=== PATIENT | male | born 1960 | race Caucasian/White ===

== ENCOUNTER 2019-04-06 16:45 | Emergency (ER) | payer OTHER | END 2019-04-06 17:15 | disposition home or self-care (01) | LOC: SCSER 16:45 | DX: K64.9 Unspecified hemorrhoids (principal); E78.5 Hyperlipidemia, unspecified; I10 Essential (primary) hypertension; E66.9 Obesity, unspecified; F17.210 Nicotine dependence, cigarettes, uncomplicated; Z86.711 Personal history of pulmonary embolism; Z79.899 Other long term (current) drug therapy | CPT/HCPCS: 99282 ==

== ENCOUNTER 2019-07-02 14:17 | Outpatient (CLI) | payer OTHER ==
--- NOTE | 2019-07-02 15:06 | ULT ---
Left lower extremity venous Doppler ultrasound: 07/02/2019 COMPARISON: 09/01/2014 HISTORY: Edema, swelling, assess for DVT TECHNIQUE: Multiplanar grayscale sonographic imaging of the venous structures of the left lower extre mity obtained with color flow and spectral analysis FINDINGS: The left common femoral vein, greater saphenous vein, profunda femoral vein, femoral vein, and posterior tibial vein appear patent. Popliteal vein is only partially compressible on the left, evidence of DVT. Incidental note is made of thrombosis of the left lesser saphenous vein as well. IMPRESSION: Deep venous thrombosis of the left popliteal vein. There is also noncompressible thrombos is involving the lesser saphenous vein. The performing railway signalling engineer Rosa Elena made the ordering nurse practitioner, Luanne Purcell, aware of these findings at 3:00 PM 07/02/2019.
== END 2019-07-02 14:18 | disposition home or self-care (01) ==
LOC: ULT 14:17
PROVIDERS: ATTEND Nurse Practitioner Adult Health
DX: M79.89 Other specified soft tissue disorders (principal); I82.432 Acute embolism and thrombosis of left popliteal vein; I82.412 Acute embolism and thrombosis of left femoral vein

== ENCOUNTER 2022-06-23 11:51 | Inpatient (IN) | payer OTHER ==
[2022-06-23 18:49] VITALS: BMI 41.6
[2022-06-23 20:24] LABS: Anion Gap 16 mmol/L (10-20); BUN (Urea Nitrogen) 12 mg/dL (8.4-25.7); Calc. Creatinine Clearance 135 mL/min (70-130); Calcium 7.5 mg/dL (7.8-10.44); Carbon Dioxide 22 mmol/L (23-31); Chloride 100 mmol/L (98-107); Estimated GFR 85; Glucose 147 mg/dL (80-115); Magnesium 1.5 mg/dL (1.6-2.6); Potassium 3.2 mmol/L (3.5-5.1); Sodium 135 mmol/L (136-145)
[2022-06-23] MEDS ORDERED: Ondansetron ODT 4 MG TAB PO PRN (20:37)
[2022-06-23] MEDS ORDERED: Lorazepam 2 MG/ML VIAL IM PRN (20:48)
[2022-06-23] MEDS ORDERED: HumaLOG 300 UNITS/3 ML VIAL SC PRN (20:58)
[2022-06-23] MEDS ORDERED: Dextrose 5% in Water 1,000 ML IV PRN (20:58)
[2022-06-23] MEDS ORDERED: Dextrose 50% Abboject 50 ML SYRINGE SLOW IVP PRN (20:58)
[2022-06-23] MEDS ORDERED: Electrolyte Replacement Protocol 1 EACH FS SCH (21:00)
[2022-06-23] MEDS: Acetaminophen 325 MG TAB PO PRN (21:42)
[2022-06-23] MEDS: chlordiazePOXIDE HCl 25 MG CAP PO SCH (21:50)
[2022-06-23] MEDS ORDERED: Magnesium 2 GM/50 ML(in water) 2 GM in Premix Bag 1 BAG IVPB SCH (22:15)
[2022-06-23] MEDS ORDERED: Potassium Chloride 20 MEQ TAB PO SCH (22:15)
[2022-06-23] MEDS: Lorazepam 1 MG TAB PO PRN (23:22)
[2022-06-24 04:50] LABS: #Eosinphils 0.2 thou/uL (0.0-0.7); #Lymphocytes 1.7 thou/uL (1.20-3.40); #Monocytes 0.9 thou/uL (0.11-0.59); #Neutrophils 5.1 thou/uL (1.40-6.50); %Basophils 0.2 % (0.0-1.0); %Eosinophils 2.7 % (0.0-10.0); %Lymphocytes 21.4 % (21.0-51.0); %Monocytes 11.2 % (0.0-10.0); %Neutrophils 64.5 % (42.0-75.0); Hemoglobin 13.2 g/dL (14.0-18.0); Mean Corpuscular HGB CONC 34.3 g/dL (32.0-36.0); Mean Corpuscular Hemoglobin 32.5 pg (27.0-31.0); Mean Corpuscular Volume 94.8 fL (78.0-98.0); Mean Platelet Volume 6.9 fL (7.4-10.4); Platelet Count 199 thou/uL (130-400); RBC Distribution Width 11.2 % (11.5-14.5); Red Blood Cell (RBC) Count 4.05 mill/uL (4.70-6.10); White Blood Cell (WBC) Count 7.8 thou/uL (4.8-10.8)
[2022-06-24 05:05] LABS: ALT (SGPT) 29 U/L (8-55); AST (SGOT) 39 U/L (5-34); Albumin 3.5 g/dL (3.4-4.8); Alkaline Phosphatase 60 U/L (40-110); Anion Gap 14 mmol/L (10-20); BUN (Urea Nitrogen) 8 mg/dL (8.4-25.7); Bilirubin, Total 0.9 mg/dL (0.2-1.2); Calc. Creatinine Clearance 135 mL/min (70-130); Calcium 7.6 mg/dL (7.8-10.44); Carbon Dioxide 25 mmol/L (23-31); Chloride 100 mmol/L (98-107); Estimated GFR 85; Globulin 2.8 g/dL (2.4-3.5); Glucose 183 mg/dL (80-115); Magnesium 2.2 mg/dL (1.6-2.6); Potassium 3.5 mmol/L (3.5-5.1); Protein, Total 6.3 g/dL (5.8-8.1); Sodium 135 mmol/L (136-145)
[2022-06-24 05:06] LABS: Phosphorus 1.6 mg/dL (2.3-4.7)
[2022-06-24] MEDS ORDERED: Magnesium 2 GM/50 ML(in water) 2 GM in Premix Bag 1 BAG IVPB SCH (05:45)
[2022-06-24] MEDS: PHOS-NAK 1 PKT PACK PO SCH ×2 (08:41→15:12)
[2022-06-24] MEDS: chlordiazePOXIDE HCl 25 MG CAP PO SCH ×3 (08:42→20:48)
[2022-06-24] MEDS: Folic Acid 1 MG TAB PO SCH (08:42)
[2022-06-24] MEDS: Multivit, Therapeutic 1 TAB PO SCH (08:42)
[2022-06-24] MEDS: Enoxaparin Sodium 40 MG/0.4 ML SYRINGE SC SCH (08:43)
[2022-06-24] MEDS ORDERED: cloNIDine 0.1 MG TAB PO PRN (08:48)
[2022-06-24] MEDS ORDERED: Non-Formulary Item 1 EACH (Omeprazole [Omeprazole] 20 MG Tablet.Dr) PO SCH (09:00)
[2022-06-24] MEDS ORDERED: Non-Formulary Item 1 EACH (Buspirone Hcl [Buspirone Hcl] 15 MG Tablet) PO SCH (09:00)
[2022-06-24] MEDS: busPIRone HCl 5 MG TAB PO SCH ×2 (10:01→20:48)
[2022-06-24] MEDS: Bupropion 150 MG XL TAB PO SCH (10:03)
[2022-06-24] MEDS: Propranolol 40 MG TAB PO SCH ×2 (10:03→20:49)
[2022-06-24] MEDS: Lorazepam 1 MG TAB PO PRN (14:14)
[2022-06-24] MEDS ORDERED: Lorazepam 1 MG TAB PO PRN (20:48)
[2022-06-24] MEDS: Rosuvastatin 5 MG TAB PO SCH (20:49)
[2022-06-24] MEDS: Acetaminophen 325 MG TAB PO PRN (20:49)
[2022-06-24] MEDS: Thiamine HCl 200 MG/2 ML VIAL SLOW IVP SCH (20:53)
[2022-06-24] MEDS ORDERED: Ondansetron PF 4 MG/2 ML Vial IVP PRN (21:21)
[2022-06-25 04:50] LABS: #Eosinphils 0.3 thou/uL (0.0-0.7); #Lymphocytes 2.4 thou/uL (1.20-3.40); #Monocytes 0.6 thou/uL (0.11-0.59); %Basophils 0.8 % (0.0-1.0); %Lymphocytes 37.8 % (21.0-51.0); %Neutrophils 47.5 % (42.0-75.0); Hemoglobin 12.7 g/dL (14.0-18.0); Mean Corpuscular HGB CONC 34.7 g/dL (32.0-36.0); Mean Corpuscular Hemoglobin 32.9 pg (27.0-31.0); Mean Corpuscular Volume 94.7 fL (78.0-98.0); Mean Platelet Volume 6.8 fL (7.4-10.4); Platelet Count 172 thou/uL (130-400); RBC Distribution Width 11.2 % (11.5-14.5); Red Blood Cell (RBC) Count 3.86 mill/uL (4.70-6.10); White Blood Cell (WBC) Count 6.2 thou/uL (4.8-10.8)
[2022-06-25 05:10] LABS: ALT (SGPT) 28 U/L (8-55); AST (SGOT) 33 U/L (5-34); Albumin 3.5 g/dL (3.4-4.8); Alkaline Phosphatase 56 U/L (40-110); Anion Gap 13 mmol/L (10-20); BUN (Urea Nitrogen) 12 mg/dL (8.4-25.7); Bilirubin, Total 0.5 mg/dL (0.2-1.2); Calc. Creatinine Clearance 127 mL/min (70-130); Carbon Dioxide 27 mmol/L (23-31); Chloride 101 mmol/L (98-107); Estimated GFR 79; Globulin 2.4 g/dL (2.4-3.5); Glucose 148 mg/dL (80-115); Magnesium 1.7 mg/dL (1.6-2.6); Potassium 3.7 mmol/L (3.5-5.1); Protein, Total 5.9 g/dL (5.8-8.1); Sodium 137 mmol/L (136-145)
[2022-06-25 05:19] LABS: Phosphorus 2.4 mg/dL (2.3-4.7)
[2022-06-25] MEDS ORDERED: Magnesium 2 GM/50 ML(in water) 2 GM in Premix Bag 1 BAG IVPB SCH ×2 (05:30→08:00)
[2022-06-25] MEDS: Enoxaparin Sodium 40 MG/0.4 ML SYRINGE SC SCH (08:18)
[2022-06-25] MEDS: chlordiazePOXIDE HCl 25 MG CAP PO SCH ×3 (08:18→20:07)
[2022-06-25] MEDS: busPIRone HCl 5 MG TAB PO SCH ×2 (08:18→20:07)
[2022-06-25] MEDS: Propranolol 40 MG TAB PO SCH ×2 (08:18→20:08)
[2022-06-25] MEDS: Multivit, Therapeutic 1 TAB PO SCH (08:18)
[2022-06-25] MEDS: Bupropion 150 MG XL TAB PO SCH (08:18)
[2022-06-25] MEDS: Folic Acid 1 MG TAB PO SCH (08:18)
[2022-06-25] MEDS: Acetaminophen 325 MG TAB PO PRN (15:34)
[2022-06-25] MEDS: HumaLOG 300 UNITS/3 ML VIAL SC PRN (17:14)
[2022-06-25] MEDS: Rosuvastatin 5 MG TAB PO SCH (20:08)
[2022-06-25] MEDS: Thiamine HCl 200 MG/2 ML VIAL SLOW IVP SCH (20:09)
[2022-06-25] MEDS ORDERED: Lorazepam 1 MG TAB PO PRN (20:48)
[2022-06-26 04:55] LABS: #Basophils 0.1 thou/uL (0.0-0.2); #Eosinphils 0.3 thou/uL (0.0-0.7); #Lymphocytes 2.3 thou/uL (1.20-3.40); #Monocytes 0.4 thou/uL (0.11-0.59); #Neutrophils 2.8 thou/uL (1.40-6.50); %Eosinophils 5.3 % (0.0-10.0); %Lymphocytes 39.2 % (21.0-51.0); %Neutrophils 47.5 % (42.0-75.0); Hemoglobin 12.5 g/dL (14.0-18.0); Mean Corpuscular HGB CONC 34.5 g/dL (32.0-36.0); Mean Corpuscular Hemoglobin 32.8 pg (27.0-31.0); Mean Corpuscular Volume 94.9 fL (78.0-98.0); Mean Platelet Volume 6.9 fL (7.4-10.4); Platelet Count 180 thou/uL (130-400); RBC Distribution Width 11.2 % (11.5-14.5); Red Blood Cell (RBC) Count 3.82 mill/uL (4.70-6.10)
[2022-06-26 05:20] LABS: ALT (SGPT) 40 U/L (8-55); AST (SGOT) 54 U/L (5-34); Albumin 3.4 g/dL (3.4-4.8); Alkaline Phosphatase 53 U/L (40-110); Anion Gap 12 mmol/L (10-20); BUN (Urea Nitrogen) 14 mg/dL (8.4-25.7); Bilirubin, Total 0.3 mg/dL (0.2-1.2); Calc. Creatinine Clearance 129 mL/min (70-130); Calcium 8.6 mg/dL (7.8-10.44); Carbon Dioxide 23 mmol/L (23-31); Chloride 103 mmol/L (98-107); Estimated GFR 80; Globulin 2.7 g/dL (2.4-3.5); Glucose 181 mg/dL (80-115); Magnesium 1.7 mg/dL (1.6-2.6); Potassium 4.2 mmol/L (3.5-5.1); Protein, Total 6.1 g/dL (5.8-8.1); Sodium 134 mmol/L (136-145)
[2022-06-26] MEDS: HumaLOG 300 UNITS/3 ML VIAL SC PRN (06:32)
[2022-06-26] MEDS ORDERED: Magnesium 2 GM/50 ML(in water) 2 GM in Premix Bag 1 BAG IVPB SCH (08:00)
[2022-06-26 08:10] VITALS: BP 156/99; TEMP 97.6
[2022-06-26] MEDS: Bupropion 150 MG XL TAB PO SCH (08:12)
[2022-06-26] MEDS: Multivit, Therapeutic 1 TAB PO SCH (08:12)
[2022-06-26] MEDS: chlordiazePOXIDE HCl 25 MG CAP PO SCH (08:12)
[2022-06-26] MEDS: busPIRone HCl 5 MG TAB PO SCH (08:12)
[2022-06-26] MEDS: Folic Acid 1 MG TAB PO SCH (08:12)
[2022-06-26] MEDS: Propranolol 40 MG TAB PO SCH (08:12)
[2022-06-26] MEDS: Enoxaparin Sodium 40 MG/0.4 ML SYRINGE SC SCH (08:13)
[2022-06-26] MEDS ORDERED: Lorazepam 0.5 MG TAB PO PRN (20:48)
[2022-06-26] MEDS ORDERED: Thiamine 100 MG TAB PO SCH (21:00)
== END 2022-06-26 11:30 | disposition home or self-care (01) | DRG 897 ==
LOC: 2SW 18:42 → OBSVTOIN 06-25 16:24
PROVIDERS: ADMIT Internal Medicine; ATTEND Family Medicine
PROC: HZ2ZZZZ Detoxification Services for Substance Abuse Treatment (ICD-10-PCS; principal; 2022-06-23)
DX: F10.139 Alcohol abuse with withdrawal, unspecified (principal); E87.1 Hypo-osmolality and hyponatremia; Z68.41 Body mass index [BMI] 40.0-44.9, adult; E11.9 Type 2 diabetes mellitus without complications; I10 Essential (primary) hypertension; E78.5 Hyperlipidemia, unspecified; G47.33 Obstructive sleep apnea (adult) (pediatric); F41.9 Anxiety disorder, unspecified; F32.A Depression, unspecified; E83.42 Hypomagnesemia; F15.10 Other stimulant abuse, uncomplicated; E66.01 Morbid (severe) obesity due to excess calories; E87.6 Hypokalemia; E83.39 Other disorders of phosphorus metabolism; R25.1 Tremor, unspecified; R00.0 Tachycardia, unspecified; D72.829 Elevated white blood cell count, unspecified; Z86.718 Personal history of other venous thrombosis and embolism; Z79.899 Other long term (current) drug therapy; Z90.49 Acquired absence of other specified parts of digestive tract; Z79.4 Long term (current) use of insulin
CPT/HCPCS: 36415; 36416; 80053; 83735; 84100; 85025; 90471; 90732; 94660; 96365; 96366; 96372; 96375; G0009; G0378; J1650; J1815; J3411; J3475

== ENCOUNTER 2022-07-31 18:40 | Inpatient (IN) | payer OTHER ==
[2022-07-31] MEDS ORDERED: Senokot S 8.6-50 MG TAB PO PRN (19:06)
[2022-07-31] MEDS ORDERED: Guaifenesin DM 100-10/5 ML UDCUP PO PRN (19:06)
[2022-07-31] MEDS ORDERED: Lorazepam 2 MG/ML VIAL IM PRN (19:06)
[2022-07-31] MEDS ORDERED: Bisacodyl 5 MG TAB PO PRN (19:06)
[2022-07-31] MEDS ORDERED: Acetaminophen 650 MG Suppository PR PRN (19:06)
[2022-07-31] MEDS ORDERED: Ondansetron ODT 4 MG TAB PO PRN (19:06)
[2022-07-31] MEDS ORDERED: Bisacodyl 10 MG SUPP PR PRN (19:06)
[2022-07-31] MEDS ORDERED: Electrolyte Replacement Protocol 1 EACH FS SCH (19:15)
[2022-07-31 20:25] LABS: Lactic Acid 6.2 mmol/L (0.5-2.2)
[2022-07-31] MEDS: Ondansetron PF 4 MG/2 ML Vial IVP PRN (20:49)
[2022-07-31] MEDS: chlordiazePOXIDE HCl 25 MG CAP PO SCH (20:50)
[2022-07-31] MEDS: Lorazepam 1 MG TAB PO SCH (20:51)
[2022-07-31] MEDS: Nicotine 21 MG PATCH TD SCH (20:51)
[2022-07-31] MEDS: Famotidine/PF 20 mg/2ml Vial SLOW IVP SCH (20:51)
[2022-07-31] MEDS: Sodium Chloride 0.9% 1,000 ML IV SCH (20:51)
[2022-07-31] MEDS: Famotidine 20 MG TAB PO SCH (20:52)
[2022-07-31] MEDS ORDERED: Magnesium 2 GM/50 ML(in water) 2 GM in Premix Bag 1 BAG IVPB SCH (21:00)
[2022-07-31] MEDS ORDERED: Dextrose 5% in Water 1,000 ML IV PRN (21:03)
[2022-07-31] MEDS ORDERED: HumaLOG 300 UNITS/3 ML VIAL SC PRN (21:03)
[2022-07-31] MEDS ORDERED: Dextrose 50% Abboject 50 ML SYRINGE SLOW IVP PRN (21:03)
[2022-07-31] MEDS ORDERED: hydrALAZINE 20 MG/ML VIAL SLOW IVP PRN (21:09)
[2022-07-31 23:07] LABS: Amphetamine Not Detected (NotDetected); Barbiturates Screen Not Detected (NotDetected); Benzodiazepine Screen Detected (NotDetected); Cocaine Metabolite Screen Not Detected (NotDetected); Methadone Not Detected (NotDetected); Methamphetamine Not Detected (NotDetected); Opiate Screen Not Detected (NotDetected); Oxycodone Screen Not Detected (NotDetected); Phencyclidine (PCP) Not Detected (NotDetected); THC/Cannabinoid Screen Not Detected (NotDetected); Tricyclic Screen Not Detected (NotDetected)
[2022-07-31] MEDS: Lorazepam 1 MG TAB PO PRN (23:28)
[2022-08-01] MEDS: Lorazepam 1 MG TAB PO SCH ×4 (01:39→18:41)
[2022-08-01] MEDS: Sodium Chloride 0.9% 1,000 ML IV SCH ×3 (01:39→14:30)
[2022-08-01 03:00] LABS: #Basophils 0.1 thou/uL (0.0-0.2); #Eosinphils 0.1 thou/uL (0.0-0.7); #Monocytes 0.9 thou/uL (0.11-0.59); #Neutrophils 5.3 thou/uL (1.40-6.50); %Basophils 0.6 % (0.0-1.0); %Eosinophils 0.8 % (0.0-10.0); %Lymphocytes 23.6 % (21.0-51.0); %Monocytes 11.2 % (0.0-10.0); %Neutrophils 63.7 % (42.0-75.0); Hemoglobin 12.6 g/dL (14.0-18.0); Mean Corpuscular HGB CONC 34.1 g/dL (32.0-36.0); Mean Corpuscular Hemoglobin 32.3 pg (27.0-31.0); Mean Platelet Volume 6.9 fL (7.4-10.4); Platelet Count 220 thou/uL (130-400); RBC Distribution Width 11.9 % (11.5-14.5); Red Blood Cell (RBC) Count 3.89 mill/uL (4.70-6.10); White Blood Cell (WBC) Count 8.3 thou/uL (4.8-10.8)
[2022-08-01 03:29] LABS: Lactic Acid 1.6 mmol/L (0.5-2.2)
[2022-08-01 03:31] LABS: Hemoglobin A1c 6.6 % (4.0-6.0)
[2022-08-01 03:35] LABS: ALT (SGPT) 36 U/L (8-55); AST (SGOT) 37 U/L (5-34); Albumin 3.6 g/dL (3.4-4.8); Alkaline Phosphatase 53 U/L (40-110); Anion Gap 16 mmol/L (10-20); BUN (Urea Nitrogen) 15 mg/dL (8.4-25.7); Bilirubin, Total 0.6 mg/dL (0.2-1.2); CK (CPK) 508 U/L (30-200); Calc. Creatinine Clearance 124 mL/min (70-130); Calcium 7.7 mg/dL (7.8-10.44); Carbon Dioxide 22 mmol/L (23-31); Chloride 99 mmol/L (98-107); Estimated GFR 79; Globulin 2.7 g/dL (2.4-3.5); Glucose 131 mg/dL (80-115); Magnesium 1.5 mg/dL (1.6-2.6); Potassium 3.6 mmol/L (3.5-5.1); Protein, Total 6.3 g/dL (5.8-8.1); Sodium 133 mmol/L (136-145)
[2022-08-01] MEDS: Acetaminophen 325 MG TAB PO PRN (04:18)
[2022-08-01] MEDS: Lorazepam 1 MG TAB PO PRN ×3 (04:57→23:46)
[2022-08-01] MEDS: Ondansetron PF 4 MG/2 ML Vial IVP PRN (04:57)
[2022-08-01] MEDS ORDERED: Magnesium 2 GM/50 ML(in water) 2 GM in Premix Bag 1 BAG IVPB SCH (08:00)
[2022-08-01] MEDS: Enoxaparin Sodium 40 MG/0.4 ML SYRINGE SC SCH (08:30)
[2022-08-01] MEDS: Famotidine/PF 20 mg/2ml Vial SLOW IVP SCH ×2 (08:30→21:05)
[2022-08-01] MEDS: Bupropion 150 MG XL TAB PO SCH (08:31)
[2022-08-01] MEDS: Valsartan 80 MG TAB PO SCH (08:31)
[2022-08-01] MEDS: Chlorthalidone 25 MG TAB PO SCH (08:31)
[2022-08-01] MEDS: busPIRone HCl 5 MG TAB PO SCH ×2 (08:31→21:04)
[2022-08-01] MEDS: Famotidine 20 MG TAB PO SCH ×2 (08:31→21:04)
[2022-08-01] MEDS: Metoprolol Tartrate 25 MG TAB PO SCH ×2 (08:32→21:05)
[2022-08-01] MEDS: Multivit, Therapeutic 1 TAB PO SCH (08:32)
[2022-08-01] MEDS: hydrOXYzine 25 MG TAB PO SCH ×3 (08:32→21:04)
[2022-08-01] MEDS: Folic Acid 1 MG TAB PO SCH (08:32)
[2022-08-01] MEDS ORDERED: Non-Formulary Item 1 EACH (Hydroxyzine Hcl [Hydroxyzine Hcl] 50 MG Tablet) PO SCH (09:00)
[2022-08-01] MEDS ORDERED: Non-Formulary Item 1 EACH (Buspirone Hcl [Buspirone Hcl] 15 MG Tablet) PO SCH (09:00)
[2022-08-01] MEDS ORDERED: Non-Formulary Item 1 EACH (Valsartan [Valsartan] 320 MG Tablet) PO SCH (09:00)
[2022-08-01] MEDS ORDERED: Non-Formulary Item 1 EACH (Amlodipine Besylate/Benazepril [Lotrel 10-40 Mg Capsule] 1 EAC PO SCH (09:00)
[2022-08-01] MEDS ORDERED: chlordiazePOXIDE HCl 5 MG CAP PO SCH (09:00)
[2022-08-01] MEDS: Amlodipine 5 mg/Benazepril 20 mg CAP PO SCH (09:33)
[2022-08-01] MEDS: chlordiazePOXIDE HCl 25 MG CAP PO SCH ×4 (10:01→21:13)
[2022-08-01] MEDS: Thiamine HCl 200 MG/2 ML VIAL SLOW IVP SCH ×2 (11:03→14:06)
[2022-08-01 11:19] LABS: Syphilis Antibody Nonreactive (Nonreactive); Syphilis Antibody Index 0.05 S/CO (<1.00 Non-Reactive)
[2022-08-01] MEDS: HumaLOG 300 UNITS/3 ML VIAL SC PRN ×2 (11:26→17:47)
[2022-08-01] MEDS: Nicotine 21 MG PATCH TD SCH (18:41)
[2022-08-01] MEDS ORDERED: Non-Formulary Item 1 EACH (Insulin Glargine,Hum.Rec.Anlog [Toujeo Solostar] 300 UNIT/ML I SQ SCH (21:00)
[2022-08-01] MEDS ORDERED: Non-Formulary Item 1 EACH (Trazodone Hcl [Trazodone Hcl] 100 MG Tablet) PO SCH (21:00)
[2022-08-01] MEDS: Rosuvastatin 5 MG TAB PO SCH (21:04)
[2022-08-01] MEDS: traZODone HCl 50 MG TAB PO SCH (21:04)
[2022-08-01] MEDS: Insulin Glargine 30 UNITS/0.3 ML VIAL SC SCH (21:06)
[2022-08-02] MEDS: Lorazepam 1 MG TAB PO SCH ×3 (00:20→12:48)
[2022-08-02] MEDS: Acetaminophen 325 MG TAB PO PRN (04:06)
[2022-08-02] MEDS: Lorazepam 1 MG TAB PO PRN ×2 (04:07→08:55)
[2022-08-02] MEDS ORDERED: Lorazepam 2 MG/ML VIAL SLOW IVP SCH ×2 (05:00→14:00)
[2022-08-02] MEDS: Enoxaparin Sodium 40 MG/0.4 ML SYRINGE SC SCH (08:53)
[2022-08-02] MEDS: chlordiazePOXIDE HCl 25 MG CAP PO SCH ×5 (08:54→22:20)
[2022-08-02] MEDS: Valsartan 80 MG TAB PO SCH (08:54)
[2022-08-02] MEDS: hydrOXYzine 25 MG TAB PO SCH ×5 (08:54→21:00)
[2022-08-02] MEDS: Famotidine 20 MG TAB PO SCH ×2 (08:54→20:57)
[2022-08-02] MEDS: Bupropion 150 MG XL TAB PO SCH (08:55)
[2022-08-02] MEDS: Multivit, Therapeutic 1 TAB PO SCH (08:55)
[2022-08-02] MEDS: Metoprolol Tartrate 25 MG TAB PO SCH ×3 (08:55→22:21)
[2022-08-02] MEDS: Folic Acid 1 MG TAB PO SCH (08:55)
[2022-08-02] MEDS: busPIRone HCl 5 MG TAB PO SCH ×2 (08:55→20:56)
[2022-08-02] MEDS: Famotidine/PF 20 mg/2ml Vial SLOW IVP SCH ×2 (08:55→20:58)
[2022-08-02] MEDS: Chlorthalidone 25 MG TAB PO SCH (08:55)
[2022-08-02] MEDS: Amlodipine 5 mg/Benazepril 20 mg CAP PO SCH (08:55)
[2022-08-02] MEDS ORDERED: traZODone HCl 50 MG TAB PO SCH (10:30)
[2022-08-02] MEDS: Thiamine HCl 200 MG/2 ML VIAL SLOW IVP SCH (11:43)
[2022-08-02] MEDS ORDERED: Lorazepam 1 MG TAB PO PRN (19:06)
[2022-08-02] MEDS: Nicotine 21 MG PATCH TD SCH (20:55)
[2022-08-02] MEDS: Lorazepam 0.5 MG TAB PO SCH (20:58)
[2022-08-02] MEDS: Insulin Glargine 30 UNITS/0.3 ML VIAL SC SCH (20:58)
[2022-08-02] MEDS: traZODone HCl 50 MG TAB PO SCH (21:05)
[2022-08-02] MEDS: Rosuvastatin 5 MG TAB PO SCH (21:05)
[2022-08-03] MEDS: Lorazepam 0.5 MG TAB PO SCH ×3 (02:35→14:39)
[2022-08-03] MEDS ORDERED: FLU VACC QS2022-23(6MOS UP)/PF 60 MCG/0.5 ML SYRINGE IM ONE (09:00)
[2022-08-03] MEDS: hydrOXYzine 25 MG TAB PO SCH ×3 (10:06→21:25)
[2022-08-03] MEDS: busPIRone HCl 5 MG TAB PO SCH ×2 (10:07→21:24)
[2022-08-03] MEDS: Famotidine 20 MG TAB PO SCH ×2 (10:07→21:26)
[2022-08-03] MEDS: Folic Acid 1 MG TAB PO SCH (10:07)
[2022-08-03] MEDS: Bupropion 150 MG XL TAB PO SCH (10:07)
[2022-08-03] MEDS: chlordiazePOXIDE HCl 25 MG CAP PO SCH ×3 (10:07→21:25)
[2022-08-03] MEDS: Valsartan 80 MG TAB PO SCH (10:07)
[2022-08-03] MEDS: Chlorthalidone 25 MG TAB PO SCH (10:07)
[2022-08-03] MEDS: Famotidine/PF 20 mg/2ml Vial SLOW IVP SCH ×2 (10:08→21:25)
[2022-08-03] MEDS: Multivit, Therapeutic 1 TAB PO SCH (10:08)
[2022-08-03] MEDS: Amlodipine 5 mg/Benazepril 20 mg CAP PO SCH (10:08)
[2022-08-03] MEDS: Metoprolol Tartrate 25 MG TAB PO SCH ×2 (10:08→21:25)
[2022-08-03] MEDS: Enoxaparin Sodium 40 MG/0.4 ML SYRINGE SC SCH (10:08)
[2022-08-03] MEDS: Thiamine HCl 200 MG/2 ML VIAL SLOW IVP SCH (10:09)
[2022-08-03] MEDS ORDERED: Lorazepam 0.5 MG TAB PO PRN (19:06)
[2022-08-03] MEDS: Rosuvastatin 5 MG TAB PO SCH (21:24)
[2022-08-03] MEDS: Nicotine 21 MG PATCH TD SCH (21:24)
[2022-08-03] MEDS: traZODone HCl 50 MG TAB PO SCH (21:25)
[2022-08-03] MEDS: Insulin Glargine 30 UNITS/0.3 ML VIAL SC SCH (21:26)
[2022-08-04] MEDS: Acetaminophen 325 MG TAB PO PRN (00:47)
[2022-08-04 05:29] VITALS: BMI 41.2
[2022-08-04] MEDS: HumaLOG 300 UNITS/3 ML VIAL SC PRN (06:52)
[2022-08-04] MEDS: Metoprolol Tartrate 25 MG TAB PO SCH ×2 (09:16→19:51)
[2022-08-04] MEDS: chlordiazePOXIDE HCl 25 MG CAP PO SCH ×3 (09:16→19:51)
[2022-08-04] MEDS: hydrOXYzine 25 MG TAB PO SCH ×3 (09:16→19:50)
[2022-08-04] MEDS: Valsartan 80 MG TAB PO SCH (09:16)
[2022-08-04] MEDS: Chlorthalidone 25 MG TAB PO SCH (09:17)
[2022-08-04] MEDS: Bupropion 150 MG XL TAB PO SCH (09:17)
[2022-08-04] MEDS: Famotidine/PF 20 mg/2ml Vial SLOW IVP SCH ×2 (09:17→20:17)
[2022-08-04] MEDS: busPIRone HCl 5 MG TAB PO SCH ×2 (09:17→19:50)
[2022-08-04] MEDS: Multivit, Therapeutic 1 TAB PO SCH (09:17)
[2022-08-04] MEDS: Famotidine 20 MG TAB PO SCH ×2 (09:17→19:51)
[2022-08-04] MEDS: Enoxaparin Sodium 40 MG/0.4 ML SYRINGE SC SCH (09:17)
[2022-08-04] MEDS: Folic Acid 1 MG TAB PO SCH (09:17)
[2022-08-04] MEDS: Amlodipine 5 mg/Benazepril 20 mg CAP PO SCH (09:17)
[2022-08-04] MEDS: Thiamine 100 MG TAB PO SCH (09:18)
[2022-08-04] MEDS: Nicotine 21 MG PATCH TD SCH (19:50)
[2022-08-04] MEDS: traZODone HCl 50 MG TAB PO SCH (19:50)
[2022-08-04] MEDS: Insulin Glargine 30 UNITS/0.3 ML VIAL SC SCH (19:51)
[2022-08-04] MEDS: Rosuvastatin 5 MG TAB PO SCH (19:52)
[2022-08-05 07:50] LABS: #Eosinphils 0.5 thou/uL (0.0-0.7); #Lymphocytes 2.7 thou/uL (1.20-3.40); #Monocytes 0.8 thou/uL (0.11-0.59); %Basophils 0.5 % (0.0-1.0); %Eosinophils 5.8 % (0.0-10.0); %Lymphocytes 33.7 % (21.0-51.0); Mean Corpuscular HGB CONC 33.9 g/dL (32.0-36.0); Mean Corpuscular Hemoglobin 32.5 pg (27.0-31.0); Mean Corpuscular Volume 95.9 fL (78.0-98.0); Mean Platelet Volume 6.9 fL (7.4-10.4); Platelet Count 203 thou/uL (130-400); RBC Distribution Width 11.8 % (11.5-14.5); Red Blood Cell (RBC) Count 4.01 mill/uL (4.70-6.10)
[2022-08-05 08:18] LABS: Anion Gap 13 mmol/L (10-20); BUN (Urea Nitrogen) 21 mg/dL (8.4-25.7); Calc. Creatinine Clearance 112 mL/min (70-130); Calcium 9.4 mg/dL (7.8-10.44); Carbon Dioxide 25 mmol/L (23-31); Chloride 98 mmol/L (98-107); Estimated GFR 68; Glucose 153 mg/dL (80-115); Sodium 132 mmol/L (136-145)
[2022-08-05] MEDS: Amlodipine 5 mg/Benazepril 20 mg CAP PO SCH (09:29)
[2022-08-05] MEDS: busPIRone HCl 5 MG TAB PO SCH (09:29)
[2022-08-05] MEDS: Folic Acid 1 MG TAB PO SCH (09:29)
[2022-08-05] MEDS: Chlorthalidone 25 MG TAB PO SCH (09:29)
[2022-08-05] MEDS: Multivit, Therapeutic 1 TAB PO SCH (09:29)
[2022-08-05] MEDS: Enoxaparin Sodium 40 MG/0.4 ML SYRINGE SC SCH (09:29)
[2022-08-05] MEDS: hydrOXYzine 25 MG TAB PO SCH ×2 (09:30→16:06)
[2022-08-05] MEDS: Bupropion 150 MG XL TAB PO SCH (09:30)
[2022-08-05] MEDS: Famotidine 20 MG TAB PO SCH (09:30)
[2022-08-05] MEDS: chlordiazePOXIDE HCl 25 MG CAP PO SCH ×2 (09:30→16:06)
[2022-08-05] MEDS: Famotidine/PF 20 mg/2ml Vial SLOW IVP SCH (09:30)
[2022-08-05] MEDS: Valsartan 80 MG TAB PO SCH (09:31)
[2022-08-05] MEDS: Metoprolol Tartrate 25 MG TAB PO SCH (09:31)
[2022-08-05] MEDS: Thiamine 100 MG TAB PO SCH (09:37)
[2022-08-08 10:55] VITALS: BP 134/87; TEMP 98.1
== END 2022-08-05 18:58 | disposition home or self-care (01) | DRG 897 ==
LOC: T4-A 18:40 → 2NO 20:09 → IMCU/EMU 08-02 11:05 → T4-A 08-04 21:40
PROVIDERS: ADMIT Hospitalist; ATTEND Hospitalist
PROC: 5A09357 Assistance with Respiratory Ventilation, Less than 24 Consecutive Hours, Continuous Positive Airway Pressure (ICD-10-PCS; principal; 2022-08-01)
DX: F10.129 Alcohol abuse with intoxication, unspecified (principal); E87.20 Acidosis, unspecified; M62.82 Rhabdomyolysis; I10 Essential (primary) hypertension; E11.9 Type 2 diabetes mellitus without complications; F17.210 Nicotine dependence, cigarettes, uncomplicated; F32.A Depression, unspecified; Z20.822 Contact with and (suspected) exposure to COVID-19; F10.239 Alcohol dependence with withdrawal, unspecified; Z79.4 Long term (current) use of insulin; Z79.899 Other long term (current) drug therapy; Z86.711 Personal history of pulmonary embolism
CPT/HCPCS: 36415; 36416; 80048; 80053; 80306; 82550; 83036; 83605; 83735; 85025; 86780; 94660; J1650; J1815; J2060; J2405; J3411; J3475; J3490; J7050; S0028; U0003; U0005

== ENCOUNTER 2025-05-29 10:28 | Outpatient (CLI) | payer OTHER | END 2025-05-29 10:29 | disposition home or self-care (01) | LOC: SCSMRI 10:28 | PROVIDERS: ATTEND Internal Medicine | DX: M79.602 Pain in left arm (principal); S46.212A Strain of muscle, fascia and tendon of other parts of biceps, left arm, initial encounter ==